=== PATIENT | male | born 1990 ===

== ENCOUNTER 2021-09-03 13:37 | Emergency (ER) | payer OTHER ==
[~2021-09-03] VITALS: Ht 185.4 cm; Wt 83.9 kg
== END 2021-09-03 18:22 | disposition home or self-care (01) ==
LOC: ER 13:37
DX: S60.512A Abrasion of left hand, initial encounter (principal); W55.01XA Bitten by cat, initial encounter; Y92.89 Other specified places as the place of occurrence of the external cause; L08.9 Local infection of the skin and subcutaneous tissue, unspecified